=== PATIENT | male | born 1965 | race Hispanic/Latino ===

== ENCOUNTER 2018-10-05 15:30 | Emergency (ER) | payer MEDICAID ==
[2018-10-05] MEDS ORDERED: Sodium Chloride 0.9% 1,000 ML IV STA ×4 (15:44→19:08)
--- NOTE | 2018-10-05 15:48 | ED PDOC ---
HPI: Psych/Substance Abuse Time Seen by Provider: 10/05/18 15:38 Chief Complaint (Nursing): Substance Abuse Chief Complaint (Provider): Substance Abuse History Per: Patient History/Exam Limitations: no limitations Onset/Duration Of Symptoms: Days Current Symptoms Are (Timing): Still Present Additional Complaint(s): 53 y/o homeless male with a PMHx of HTN and DM brought in by [facility] for evaluation of possible substance abuse. According to patient, he was waiting for a friend to walk out of [employer] and looked sleepy. As per triage note, patient was sent from the half-way for being too sleepy as well as admitted to using heroin today. Of note, patient is non-complaint with DM medications. PMD: no provider Past Medical History Reviewed: Historical Data, Nursing Documentation, Vital Signs Vital Signs: Last Vital Signs Temp 98.0 F 10/05/18 15:37 Pulse 150 H 10/05/18 15:37 Resp 20 10/05/18 15:37 BP 192/120 H 10/05/18 15:37 Pulse Ox 98 10/05/18 15:37 - Medical History PMH: Diabetes, HTN Denies: Chronic Kidney Disease - Surgical History Surgical History: No Surg Hx - Family History Family History: States: Unknown Family Hx - Living Arrangements Living Arrangements: Other (homeless) - Social History Drugs: Other (heroin) - Immunization History Hx Tetanus Toxoid Vaccination: No Hx Influenza Vaccination: No Hx Pneumococcal Vaccination: No - Home Medications Home Medications: Ambulatory Orders Medication Instructions Recorded amLODIPine [Norvasc] 10 mg PO QAM #7 tab 10/05/18 metFORMIN [glucOPHAGE] 500 mg PO BID #14 tab 10/05/18 - Allergies Allergies/Adverse Reactions: Allergies Allergy/AdvReac Type Severity Reaction Status Date / Time No Known Allergies Allergy Verified 10/05/18 15:37 Review of Systems ROS Statement: Except As Marked, All Systems Reviewed And Found Negative Neurological: Positive for: Other (sleepy) Psych: Positive for: Other (substance abuse) Physical Exam - Reviewed Nursing Documentation Reviewed: Yes Vital Signs Reviewed: Yes - Physical Exam Appears: Positive for: No Acute Distress (but disheveled, unkempt ) Head Exam: Positive for: ATRAUMATIC, NORMOCEPHALIC Skin: Positive for: Normal Color, Warm, Dry Eye Exam: Positive for: Normal appearance, EOMI, PERRL Neck: Positive for: Normal, Painless ROM, Supple Cardiovascular/Chest: Positive for: Tachycardia. Negative for: Murmur Respiratory: Positive for: Normal Breath Sounds. Negative for: Respiratory Distress Gastrointestinal/Abdominal: Positive for: Normal Exam, Soft. Negative for: Tenderness Extremity: Positive for: Normal ROM. Negative for: Deformity Neurological/Psych: Positive for: Awake, Alert, Oriented. Negative for: Motor/Sensory Deficits - Laboratory Results Result Diagrams: 10/05/18 15:50 10/05/18 15:50 - ECG O2 Sat by Pulse Oximetry: 98 (RA) Pulse Ox Interpretation: Normal Medical Decision Making Medical Decision Making: Time: 1543 Impression: Possible Substance Abuse Plan: -- VBG -- EKG -- Alcohol Serum -- CMP -- Urine Drug Screen -- Troponin I -- ED Urine Dipstick -- CBC with Differentials -- PTT -- Prothrombin Time -- CXR Portable -- Sodium Chloride IV 1000 mls/hr -- Sodium Chloride IV 1000 mls/hr -- Glucose, Blood, POC -- Urinalysis Scribe Attestation: Documented by Cassius Naranjo, acting as a scribe Tim Lopez MD. Provider Scribe Attestation: All medical record entries made by the Scribe were at my direction and personally dictated by me. I have reviewed the chart and agree that the record accurately reflects my personal performance of the history, physical exam, medical decision making, and the department course for this patient. I have also personally directed, reviewed, and agree with the discharge instructions and disposition. Disposition - Clinical Impression Clinical Impression: Hyperglycemia, Left against medical advice, Hypertension - Patient ED Disposition Is Patient to be Admitted: Transfer of Care - Disposition Referrals: [facility] [Outside] Disposition: Transfer of Care Disposition Time: 19:00 Condition: STABLE Prescriptions: amLODIPine [Norvasc] 10 mg PO QAM #7 tab metFORMIN [glucOPHAGE] 500 mg PO BID #14 tab Instructions: High Blood Pressure in Adults, Hyperglycemia, Adult, Leaving Against Medical Advice Forms: [facility] (Swedish) Patient Signed Over To: Oscar Chavira
[2018-10-05 15:59] LABS: BASO % 0.6 % (0.0-2.0); EOS % 0.5 % (0.0-4.0); HEMOGLOBIN 15.1 g/dL (12.0-18.0); LYMPH # 2.9 K/uL (1.0-4.3); LYMPH % 35.4 % (20.0-40.0); MEAN CELL VOLUME 86.1 fl (80.0-94.0); MEAN CORPUSCULAR HEMOGLOBIN 29.5 pg (27.0-31.0); MEAN CORPUSCULAR HGB CONC 34.3 g/dL (33.0-37.0); MEAN PLATELET VOLUME 8.5 fl (7.2-11.7); MONO # 0.8 K/uL (0.0-0.8); MONO % 9.1 % (0.0-10.0); NEUT # 4.5 K/uL (1.8-7.0); NEUT % 54.4 % (50.0-75.0); NRBC % 0.1 % (0.0-0.0); RBC 5.13 Mil/uL (4.40-5.90); RED CELL DISTRIBUTION WIDTH 12.7 % (11.5-14.5); WHITE BLOOD COUNT 8.2 K/uL (4.8-10.8)
[2018-10-05 16:05] LABS: PROTHROMBIN TIME 10.9 Seconds (9.8-13.1)
[2018-10-05 16:08] LABS: PARTIAL THROMBOPLASTIN TIME 31.5 Seconds (25.6-37.1)
[2018-10-05 16:10] LABS: VENOUS BLOOD GAS BASE EXCESS 8.1 mmol/L (0.0-2.0); VENOUS BLOOD GAS PCO2 58 mmHg (40-60); VENOUS BLOOD GAS PO2 65 mm/Hg (30-55); VENOUS BLOOD PH 7.39 (7.32-7.43)
[2018-10-05 16:22] LABS: ALB/GLOB RATIO 1.3 (1.0-2.1); ALBUMIN 4.5 g/dL (3.5-5.0); ALT/SGPT 124 U/L (21-72); AST/SGOT 58 U/L (17-59); BLOOD UREA NITROGEN 11 mg/dl (9-20); CALCIUM 9.9 mg/dL (8.4-10.2); GFR NON-AFRICAN AMERICAN > 60
[2018-10-05] MEDS ORDERED: Insulin Regular 100 units/ml IV STA ×2 (17:16→19:08)
[2018-10-05] MEDS ORDERED: Insulin Regular 100 units/ml ONE (17:23)
--- NOTE | 2018-10-05 17:34 | RAD ---
Date of service: 10/05/2018 HISTORY: Tachycardia. COMPARISON: No prior. FINDINGS: LUNGS: No active pulmonary disease. PLEURA: No significant pleural effusion identified, no pneumothorax apparent. CARDIOVASCULAR: No atherosclerotic calcification present Normal. OSSEOUS STRUCTURES: No significant abnormalities. VISUALIZED UPPER ABDOMEN: Normal. OTHER FINDINGS: None. IMPRESSION: No active disease.
[2018-10-05 19:36] VITALS: RESP 18
--- NOTE | 2018-10-05 20:08 | ED PDOC ---
- Laboratory Results Result Diagrams: 10/05/18 15:50 10/05/18 15:50 Lab Results: pO2 65 mm/Hg (30-55) H 10/05/18 16:02 VBG pH 7.39 (7.32-7.43) 10/05/18 16:02 VBG pCO2 58 mmHg (40-60) 10/05/18 16:02 VBG HCO3 31.1 mmol/L 10/05/18 16:02 VBG Total CO2 36.9 mmol/L (22-28) H 10/05/18 16:02 VBG O2 Sat (Calc) 96.0 % (40-65) H 10/05/18 16:02 VBG Base Excess 8.1 mmol/L (0.0-2.0) H 10/05/18 16:02 VBG Potassium 3.6 mmol/L (3.6-5.2) 10/05/18 16:02 Sodium 135.0 mmol/L (132-148) 10/05/18 16:02 Chloride 93.0 mmol/L (98-107) L 10/05/18 16:02 Glucose 546 mg/dL (75-110) H* 10/05/18 16:02 Lactate 2.2 mmol/L (0.7-2.1) H 10/05/18 16:02 FiO2 21.0 % 10/05/18 16:02 Crit Value Called To zain Lopez md 10/05/18 16:02 Crit Value Called By Carmen connelly 10/05/18 16:02 Crit Value Read Back Y 10/05/18 16:02 Blood Gas Notified Time 1610 10/05/18 16:02 PT 10.9 Seconds (9.8-13.1) 10/05/18 15:50 INR 1.0 10/05/18 15:50 APTT 31.5 Seconds (25.6-37.1) 10/05/18 15:50 Troponin I < 0.0120 ng/mL (0.00-0.120) 10/05/18 15:50 Total Bilirubin 0.6 mg/dl (0.2-1.3) 10/05/18 15:50 AST 58 U/L (17-59) 10/05/18 15:50 ALT 124 U/L (21-72) H 10/05/18 15:50 Alkaline Phosphatase 171 U/L (38-126) H D 10/05/18 15:50 Total Protein 7.9 G/DL (6.3-8.2) 10/05/18 15:50 Albumin 4.5 g/dL (3.5-5.0) 10/05/18 15:50 Globulin 3.4 gm/dL (2.2-3.9) 10/05/18 15:50 Albumin/Globulin Ratio 1.3 (1.0-2.1) 10/05/18 15:50 - ECG O2 Sat by Pulse Oximetry: 98 (RA) Pulse Ox Interpretation: Normal Medical Decision Making Medical Decision Makin:00 Patient signed out to this provider by Dr. Lopez pending repeat glucose and blood pressure, re-evaluation and final disposition. 20:20 AMA: Patient feels better, but has elevated blood pressure and glucose. He is unwilling to stay for further treatment and has concern for his job that starts at 9 PM. Patient has uncontrolled hyperglycemia, hypertension and diabetes. Provider gave limited supply of Metformin and Norvasc. Encouraged to follow up in clinic or return to ED at any time. Scribe Attestation: Documented by Bryant Thrasher, acting as a scribe for Oscar Chavira MD Provider Scribe Attestation: All medical record entries made by the Scribe were at my direction and personally dictated by me. I have reviewed the chart and agree that the record accurately reflects my personal performance of the history, physical exam, medical decision making, and the department course for this patient. I have also personally directed, reviewed, and agree with the discharge instructions and disposition. Disposition - Clinical Impression Clinical Impression: Hyperglycemia, Left against medical advice, Hypertension - POA Present On Arrival: None - Disposition Referrals: [facility] [Outside] Disposition: AGAINST MEDICAL ADVICE Disposition Time: 20:20 Condition: FAIR Prescriptions: amLODIPine [Norvasc] 10 mg PO QAM #7 tab metFORMIN [glucOPHAGE] 500 mg PO BID #14 tab Instructions: High Blood Pressure in Adults, Hyperglycemia, Adult, Leaving Against Medical Advice Forms: [facility] (Albanian) Against Medical Advice - AMA Patient Left Against Medical Advice: The patient declines admission to the hospital and wishes to leave the Emergency Department. This action is against my medical advice. This decision was made with informed refusal. The patient was told that admission to the hospital is necessary. Explanation of the reasons why were discussed. The risks of leaving were explained to the patient and include, but are not limited to, worsening of known or currently unknown conditions, permanent disability and from undiagnosed or untreated conditions. The patient has the capacity to make this informed decision and understands my explanation of the current medical problem and risks of leaving. The patient voluntarily accepts these risks and signed an AMA form documenting our conversation. The patient was given the opportunity to ask questions and reconsider. The patient was encouraged to return to the Emergency Department at any time for further care. 10/05/18 20:42
[2018-10-05 20:28] VITALS: BP 183/113; PULSE 102; TEMP 98.2
[2018-10-05 20:35] VITALS: O2SAT 98
[2018-10-05 20:49] LABS: SQUAMOUS EPITHIAL < 1 /hpf (0-5); URINE BACTERIA RARE (<OCC); URINE BILIRUBIN NEGATIVE (NEGATIVE); URINE BLOOD NEGATIVE (NEGATIVE); URINE CLARITY CLEAR (Clear); URINE COLOR YELLOW (YELLOW); URINE GLUCOSE (UA) >=500 mg/dL (NEGATIVE); URINE LEUKOCYTE ESTERASE NEG Leu/uL (Negative); URINE PROTEIN NEGATIVE (NEGATIVE); URINE UROBILINOGEN 0.2-1.0 mg/dL (0.2-1.0)
[2018-10-05 20:58] LABS: BARBITURATES, UR NEGATIVE (NEGATIVE); BENZODIAZEPINES, UR NEGATIVE (NEGATIVE); OPIATES, UR POSITIVE (NEGATIVE); PHENCYCLIDINE, UR NEGATIVE (NEGATIVE)
--- NOTE | 2018-10-05 22:20 | CARD ---
APPROVED REPORT Date of service: 10/05/2018 EKG Measurement Heart [id number] <Conclusion> Sinus tachycardia Nonspecific ST abnormality Abnormal ECG
== END 2018-10-05 20:34 | disposition left against medical advice (07) ==
LOC: H.ER 15:30
DX: E11.65 Type 2 diabetes mellitus with hyperglycemia (principal); I10 Essential (primary) hypertension; Z59.0 Homelessness; Z79.84 Long term (current) use of oral hypoglycemic drugs; R00.0 Tachycardia, unspecified
CPT/HCPCS: 71045; 80053; 80320; 80324; 80345; 80346; 80349; 80353; 80358; 80361; 81003; 82803; 82948; 83992; 84484; 85025; 85610; 85730; 93005; 96361; 96374; 96376; 99285; J7030